=== PATIENT | male | born 1970 | race Two or more races ===

== ENCOUNTER 2022-01-25 19:15 | Emergency (ER) | payer SELFPAY ==
[~2022-01-25] VITALS: Ht 175.3 cm; Wt 82.4 kg
[2022-01-25 19:25] VITALS: BP 124/86
[2022-01-25 22:49] LABS: Urine Bacteria NONE SEEN /hpf (None Seen); Urine Blood 1+ /uL (Negative); Urine Specific Gravity 1.006 (1.001-1.035); Urine WBC 193 /hpf (0 - 3); Urine WBC Clumps PRESENT /hpf (None Seen)
[2022-01-26] MEDS ORDERED: DOXY-346 PO (02:15)
[2022-01-26] MEDS ORDERED: cefTRIAXone SOD 500 MG VL IM ONE (02:15)
== END 2022-01-26 02:54 | disposition home or self-care (01) ==
LOC: ER 19:15
DX: A64 Unspecified sexually transmitted disease (principal); F17.210 Nicotine dependence, cigarettes, uncomplicated
CPT/HCPCS: 81001; 96372; 99283; J0696